=== PATIENT | female | born 1975 | race Caucasian/White ===

== ENCOUNTER 2016-05-31 18:54 | Emergency (ER) | payer MEDICAID, OTHER ==
[~2016-05-31] VITALS: Ht 162.6 cm; Wt 78.0 kg
[~2016-05-31 18:54] MED LIST: LEVONORGESTREL PO
[2016-05-31 19:02] VITALS: BP 144/85
--- NOTE | 2016-05-31 20:06 | NUR ---
PT TAKEN TO BED 1
--- NOTE | 2016-05-31 20:08 | NUR ---
PT PRESENTS TO ER W/C/O N/V/D X1 DAY. PT DENIES ANY MEDICAL HX.PATIENT STATES PAIN OF 8/10 AT THIS TIME; VSS; PATIENT POSITIONED FOR COMFORT; HOB ELEVATED; BEDRAILS UP X2; BED DOWN. ER MD MADE AWARE OF PT STATUS.
--- NOTE | 2016-05-31 21:00 | NUR ---
DR. STRICKLAND AT BEDSIDE EVALUATING PT
[2016-05-31] MEDS ORDERED: NACL 0.9% 1,000 ML IV ONE (21:10)
[2016-05-31] MEDS ORDERED: LEVOFLOXACIN 500 MG/D5W PREMIX 100 ML IV ONE (21:15)
--- NOTE | 2016-05-31 21:19 | NUR ---
PT TO TAKEN TO CT ACCOMPANIED BY THERMAL MOLDER
--- NOTE | 2016-05-31 21:30 | NUR ---
PT RETURN FROM CT
--- NOTE | 2016-05-31 22:45 | NUR ---
IV removed, catheter intact and site benign. Applied folded 4x4 gauze and tape to stop bleeding.
[2016-05-31 22:48] VITALS: BP 125/78
--- NOTE | 2016-05-31 22:48 | NUR ---
Patient discharged with v/s stable BY DR. STRICKLAND. Written and verbal after care instructions given and explained BY DR. STRICKLAND. Patient alert, oriented and verbalized understanding of instructions BY DR. STRICKLAND. Ambulatory with steady gait. All questions addressed prior to discharge BY DR. STRICKLAND. ID band removed BY DR. STRICKLAND. Patient advised to follow up with PMD BY DR. STRICKLAND. Rx of FLAGYL 500MG TABLET 1 TAB ORALLY 2 TIMES A DAY BY MOUTH given DR. STRICKLAND. Patient educated on indication of medication including possible reaction and side effects BY DR. STRICKLAND. Opportunity to ask questions provided and answered BY DR. STRICKLAND.
== END 2016-05-31 22:48 | disposition home or self-care (01) ==
LOC: MED 19:01
DX: K52.9 Noninfective gastroenteritis and colitis, unspecified (principal); R03.0 Elevated blood-pressure reading, without diagnosis of hypertension
CPT/HCPCS: 36415; 74176; 80053; 81001; 81025; 82150; 83690; 85025; 96365; 99285; J1956; J7030

== ENCOUNTER 2016-10-15 13:43 | Emergency (ER) | payer SELFPAY ==
[~2016-10-15] VITALS: Ht 160 cm; Wt 81.6 kg
[~2016-10-15 13:43] MED LIST changes: -LEVONORGESTREL PO; +[UNRECOGNIZED DRUG - CODE] PO
[2016-10-15 13:51] VITALS: BP 120/88
[2016-10-15] MEDS ORDERED: IBUP800T55 PO (13:56)
--- NOTE | 2016-10-15 15:10 | NUR ---
Pt taken to bed 8.
--- NOTE | 2016-10-15 15:10 | NUR ---
Patient ambulated to bed 8. RN evaluating patient at bedside.
--- NOTE | 2016-10-15 15:15 | NUR ---
41/F c/o headache for the past two weeks, worse and constant the past 3 days. Pt c/o throbbing, constant 9/10 pain headache. Denies N/V/D. Denies fever or chills.Denies changes in vision. Pt also c/o dizziness. Denies LOC or syncope. Denies numbness or tingling. AOX4, clear speech. Ambulatory with steady gait. VSS.
--- NOTE | 2016-10-15 15:16 | NUR ---
Pt provided with warm blanket. Placed in positon of comfort. All needs addressed.
--- NOTE | 2016-10-15 15:22 | NUR ---
Dr. Cary evaluating patient at bedside.
[2016-10-15] MEDS: diphenhydrAMINE 50 MG/ML VIAL IM ONE (15:47)
[2016-10-15] MEDS: PROCHLORPERAZINE 10 MG/2 ML VIAL IM ONE (15:47)
[2016-10-15 16:36] VITALS: BP 112/71
== END 2016-10-15 16:55 | disposition home or self-care (01) ==
LOC: MED 13:43
DX: R51 Headache (principal); H53.149 Visual discomfort, unspecified; R42 Dizziness and giddiness; R03.0 Elevated blood-pressure reading, without diagnosis of hypertension; Z79.899 Other long term (current) drug therapy
CPT/HCPCS: 81002; 81025; 96372; 99284; J0780; J1200